=== PATIENT | female | born 1935 | race Caucasian/White ===

== ENCOUNTER → 2016-09-16 | Outpatient (CLI) | payer OTHER ==
[~2016-09-16] MED LIST: ASPCH81 PO; ATOR-22 PO; CALC-338 PO; CHOL100010 PO; HYDR25TA5 PO; ISOS60TA25 PO; MISCCAP80 PO; MULT-506 PO; NTRGSL/4 UT; OMEG12006 PO; POTA10TA PO; PRLSR20 PO; SOTA80TA PO; VITBC PO; WARF2TAB PO; ZNTT/150 PO
--- NOTE | 2016-09-16 16:45 | MAMMOGRAPHY REPORT ---
BILATERAL DIGITAL SCREENING MAMMOGRAM WITH CAD: 09/16/2016 TECHNIQUE: Current study was also evaluated with a Computer Aided Detection (CAD) system. Bilatera l CC and MLO views were obtained. COMPARISON: Comparison is made to exams dated: 06/13/2013 mammogram, 06/11/2012 mammogram, 06/09/2011 mammogram, 06/06/2010 mammogram, 09/05/2015 mammogram, and 06/05/2009 mammogram - [facility]. BREAST COMPOSITION: The tissue of both breasts is heterogeneously dense, which may obscure small ma sses. FINDINGS: There is a nodular 8 mm asymmetry seen within the left lateral breast on the cc view only , which may represent overlapping fibroglandular tissue although spot compression tomosynthesis view s and possible breast ultrasound are recommended for further evaluation. The remainder of both breasts are stable compared to prior exams, without suspicious masses, calcifi cations, or areas of architectural distortion noted. Bilateral benign-appearing calcifications are not significantly changed compared to multiple prior exams. Pacemaker projects over the left pector flex muscle. IMPRESSION: ACR BI-RADS CATEGORY 0: INCOMPLETE EVALUATION: NEED ADDITIONAL IMAGING EVALUATION Left lateral breast asymmetry, for which additional imaging evaluation is recommended. The patient will be called to schedule an appointment. Approximately 10% of breast cancers are not detected with mammography. A negative mammographic repor t should not delay biopsy if a clinically suggestive mass is present. Nicole Carbone M.D. ah/:09/16/2016 15:07:05 Molder Offbearer: Marilee LOVELACE)(Mitchell), [facility] letter sent: Addl Imaging 0 BI-RADS Code: ACR BI-RADS Category 0: Incomplete Evaluation: Need Additional Imaging Evaluation
== END | disposition home or self-care (01) ==
LOC: C.MAMM 14:28
PROVIDERS: ATTEND Family Medicine
DX: Z12.31 Encounter for screening mammogram for malignant neoplasm of breast (principal); N64.89 Other specified disorders of breast

== ENCOUNTER → 2016-09-30 | Outpatient (CLI) | payer OTHER ==
--- NOTE | 2016-10-01 09:24 | MAMMOGRAPHY REPORT ---
UNILATERAL LEFT DIGITAL DIAGNOSTIC MAMMOGRAM TOMOSYNTHESIS AND TARGETED LEFT ULTRASOUND: 09/30/2016 CLINICAL HISTORY: 81-year-old woman called back from screening mammography for an 8 mm asymmetry in the lateral left breast, best seen on the CC view. Family history of breast cancer = 2 sisters. TECHNIQUE: Spot compression left CC and MLO 2-D digital and tomosynthesis images were obtained. COMPARISON: Comparison is made to exams dated: 09/16/2016 mammogram, 09/05/2015 ultrasound, 09/05/2015 m ammogram, and 06/13/2013 mammogram - [facility]. BREAST COMPOSITION: There are scattered areas of fibroglandular density in the left breast. FINDINGS: There is a rounded change metallic biopsy marker in the inferior, far posterior left breas t on the spot compression MLO view. There are grouped punctate and amorphous microcalcifications in the 12:00 to 1:00 middle and anterior left breast, that it been present dating back to at least 200 8, therefore likely benign. The 8 mm nodular asymmetry in the lateral posterior left breast is less conspicuous on the 2-D view, and no definite persistent mass on the corresponding tomosynthesis anai ges. Incidental note is made of a morphologically normal intramammary lymph node in the far posteri or lateral left breast. No focal area of architectural distortion is identified. Real-time high resolution sonographic evaluation was performed in the lateral left breast. In the 2 :00 axis, 2 cm from the nipple, there is a lobulated isoechoic solid-appearing mass versus normal fa t lobule measuring 6.3 x 3.2 x 6.6 mm. This does not correlate with the location of the 8 mm mammog raphic asymmetry but is indeterminate given the solid nature and definitive characterization with ti ssue sampling is recommended. No other discrete solid or cystic mass is identified. IMPRESSION: ACR BI-RADS CATEGORY 4B: INTERMEDIATE SUSPICION FOR MALIGNANCY, TARGETED ULTRASOUND ACR BI-RADS CATEGORY 4B: INTERMEDIATE SUSPICION FOR MALIGNANCY 1. Ultrasound guided core needle biopsy is recommended for an indeterminate solid microlobulated 6. 6 mm mass versus conspicuous fat lobule in the 2:00 left breast, 2 cm from the nipple, incidentally identified on ultrasound. 2. The 8 mm asymmetry in the lateral posterior left breast effaces with additional views and no clare picious sonographic correlate was seen. Pending benign pathology results, a short interval follow-u p left diagnostic mammogram and possible repeat ultrasound is recommended to ensure stability in 6 m onths, as this most likely represents normal overlapping tissue. These results and recommendations were discussed with the patient at the time of the exam. She tent atively scheduled the left breast biopsy prior to leaving our department. Approximately 10% of breast cancers are not detected with mammography. A negative mammographic repor t should not delay biopsy if a clinically suggestive mass is present. Nohemi Sun M.D. ay/:09/30/2016 12:54:08 Colorectal Surgeon: Marlene Temple RT(R)(M), [facility] letter sent: Abnormal 4/5 BI-RADS Code: ACR BI-RADS Category 4B: Intermediate Suspicion For Malignancy Ultrasound BI-RADS: AC R BI-RADS Category 4B: Intermediate Suspicion For Malignancy
== END | disposition home or self-care (01) ==
LOC: C.MAMM 10:30
PROVIDERS: ATTEND Family Medicine
DX: N63 Unspecified lump in breast (principal); N64.89 Other specified disorders of breast

== ENCOUNTER → 2016-10-06 | Outpatient (CLI) | payer OTHER ==
--- NOTE | 2016-10-06 13:20 | Discharge Instructions ---
Discharge Instructions Procedure Procedure Date: Oct 06, 2016. Reason for visit: Left Mass. Discharge Discharge Date: Oct 06, 2016. Discharge Diagnosis: post left breast ultrasound guided core biopsy Medications Restart Stopped Medication(s): Keep taking Warfarin as per your Doctor's orders Instructions Activity Recommendations: Additional Limitations (see below) Return to School/Work: no limitations Recommended Home Diet: No Limitations Provider Instructions: ACTIVITY RECOMMENDATIONS: * No lifting, pushing, pulling or exercising the affected side for three days. RETURN TO SCHOOL/WORK: * You may return to work/school after the procedure, but do not perform any strenuous activities for 24 to 48 hours. MEDICATIONS: * Tylenol (two 325 mg) every four to six hours if needed for mild pain (if not allergic to Tylenol). DIET: * Resume previous diet. SPECIAL CARE INSTRUCTIONS: * Keep biopsy site dry for 24 hours. May shower after 24 hours, but do not soak (bathe) incision. * May remove Tegaderm (plastic patch) tomorrow AFTER showering. * Leave the steri-strips on for one week. Allow the steri-strips to fall off by themselves. If not off after one week, you may remove them. You may place a Bandaid crosswise over the strips, if desired. * Apply ice 10 minutes on and 10 minutes off as needed. * Wear a bra at bedtime to sleep more comfortably for 2-3 days. * Your referring physician should have the results after approximately 5 to 7 business days. * Call for unusual bleeding, fever, drainage, etc or if you have any questions call [phone] during normal business hours or after hours call Dr Sun, . FOLLOW UP VISIT: Follow-up with Referring Physician as scheduled. Allergies Coded Allergies: Sulfa Antibiotics (Verified Allergy, Unknown, UNKNOWN, 02/16/15) HAD RXT IN CHILDHOOD Beata Man Recommendations: Call your doctor if: * Temperature above 101 degrees * Pain not relieved by pain medicine ordered * There is increased drainage or redness from any incision * You have any unanswered questions or concerns. Your Doctors Instructions noted above were prepared by provider Nohemi Sun. Patient Signature Section: Patient Instructions Signature Page Fiorella Cleveland Patient (or Guardian) Signature/Date: I have read and understand the instructions given to me by my caregivers. Caregiver/RN/Doctor Signature/Date: The above-named patient and/or guardian has received patient instructions on this date. + Original Patient Signature Page (only) stays with chart. Please make copy for patient.
--- NOTE | 2016-10-06 13:49 | MAMMOGRAPHY REPORT ---
UNILATERAL LEFT DIGITAL DIAGNOSTIC MAMMOGRAM TOMOSYNTHESIS: 10/06/2016 CLINICAL HISTORY: Status post ultrasound-guided core biopsy in the 2:00 left breast. Please refer to the report from left breast ultrasound guided core biopsy performed at the same time for full detail. IMPRESSION: POST PROCEDURE IMAGING FOR MARKER PLACEMENT Please refer to the report from left breast ultrasound guided core biopsy performed at the same time for full detail. Approximately 10% of breast cancers are not detected with mammography. A negative mammographic repor t should not delay biopsy if a clinically suggestive mass is present. Nohemi Sun M.D. ay/:10/06/2016 13:27:33 Underlay Stitcher: Sabrina LOVELACE)(Mitchell), [facility] BI-RADS Code: Post Procedure Imaging For Marker Placement
--- NOTE | 2016-10-07 08:01 | MAMMOGRAPHY REPORT ---
THIS REPORT HAS BEEN AMENDED. ULTRASOUND GUIDED BIOPSY LEFT BREAST: 10/06/2016 CLINICAL HISTORY: Indeterminate hypoechoic solid mass in the 2:00 left breast. Patient presents for ultrasound-guided core needle biopsy. COMPARISON: Comparison is made to exams dated: 09/30/2016 ultrasound, 09/30/2016 mammogram, and 2016 mammogram - [facility]. PATIENT CONSENT: The procedure, risks and benefits were discussed with the patient and informed writ ten consent was obtained. Specific risks to this procedure include: bleeding, infection, puncture of adjacent structure, nontarget biopsy, sampling error, metal allergy and medication reaction. PROCEDURE DESCRIPTION: A time out was performed and the left breast was agreed as the site of biopsy . The skin was prepped and draped in the usual sterile fashion. The slightly hypoechoic irregular so lid appearing mass in the left 2:00 breast was chosen as the target for biopsy. Subcutaneous and int raparenchymal 1% buffered lidocaine was administered as local anesthesia. A skin incision was made. Through the incision, 3 samples were taken with a 14 gauge Achieve biopsy device. A metallic marker was placed at the biopsy site. Hemostasis was achieved after manual compression. The patient tolera awilda the procedure well and there was no immediate complication. She left the department in satisfac tory condition and was instructed to continue taking Coumadin as per her doctor's recommendations. The samples were sent to the pathology department in an appropriately labeled container. Postprocedure left CC and ML tomosynthesis images were obtained. There is a new ribbon-shaped metal lic biopsy marker and no significant hematoma in the upper outer anterior left breast, at the site o f the biopsied hypoechoic solid mass seen on ultrasound. The biopsy marker clip is more anterior to the effacing asymmetry seen on the recent screening mammogram performed 09/16/2016, as this was tho ught to be incidental based on location during the diagnostic ultrasound. Therefore, pending benign pathology results, would recommend repeat diagnostic mammograms of the left breast in 6 months to e nsure stability. IMPRESSION: ULTRASOUND GUIDED BIOPSY Status post ultrasound guided core needle biopsy of an indeterminate solid mass in the 2:00 left anthony ast, with biopsy marker placed at the site. Pending benign pathology results, follow-up diagnostic mammograms and possible ultrasound of the lef t breast are recommended to ensure stability in 6 months. The patient will receive notification of the biopsy results from her referring physician. Nohemi Sun M.D. ay/:10/06/2016 16:00:52 Garment Form Assembler: Sabrina DAVIDSON (R)), [facility] AMENDMENT: 10/15/2016 Nohemi Sun M.D. 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 Negative for in situ and invasiv e carcinoma. The pathology results are concordant with the imaging appearance. Given that the monico ent was initially called back for an asymmetry posterior and lateral to the biopsied mass, those marni or recommendations still stand of a short interval follow-up diagnostic left mammogram in 6 months t o ensure stability.
== END | disposition home or self-care (01) ==
LOC: C.MAMM 12:27
PROVIDERS: ATTEND Family Medicine
DX: D24.2 Benign neoplasm of left breast (principal); N60.92 Unspecified benign mammary dysplasia of left breast; R92.8 Other abnormal and inconclusive findings on diagnostic imaging of breast

== ENCOUNTER → 2017-05-08 | Outpatient (CLI) | payer OTHER ==
--- NOTE | 2017-05-08 15:48 | MAMMOGRAPHY REPORT ---
UNILATERAL LEFT DIGITAL DIAGNOSTIC MAMMOGRAM TOMOSYNTHESIS WITH CAD: 05/08/2017 CLINICAL HISTORY: Six-month follow-up of left breast asymmetry. History of benign ultrasound-guided biopsy of a left 2:00 breast mass October 2016. TECHNIQUE: Breast tomosynthesis in addition to standard 2D mammography was performed. Current study was also evaluated with a Computer Aided Detection (CAD) system. Left CC and MLO 2-D and tomosynthes is images were obtained. COMPARISON: Comparison is made to exams dated: 10/06/2016 mammogram, 09/30/2016 ultrasound, 09/30/2016 m ammogram, 09/16/2016 mammogram, 09/05/2015 mammogram, and 06/13/2013 mammogram - [facility]. BREAST COMPOSITION: The tissue of the left breast is heterogeneously dense, which may obscure small masses. FINDINGS: The previously described asymmetry seen within the left lateral posterior breast is no long er evident. The tissue in this region has the appearance of normal fibroglandular tissue on the tushar synthesis images. Given that the asymmetry is no longer evident, it is benign and compatible with no rmal fibroglandular tissue. There are no suspicious masses, calcifications, or areas of architectura l distortion noted in the left breast. There has been no significant interval change compared to marni or exams. A biopsy marker clip is again noted in the left upper outer quadrant from prior benign ult rasound guided biopsy. Scattered benign-appearing calcifications are not significantly changed, incl uding loosely grouped calcifications in the left upper outer quadrant which are stable dating back to at least the 2007 exam. IMPRESSION: ACR BI-RADS CATEGORY 2: BENIGN The left breast asymmetry is no longer evident, and is benign and compatible with normal fibroglandul ar tissue. There is no mammographic evidence of malignancy. Return to annual mammogram screening [facility] is recommended, due September 2017. The patient has been verbally notified of the results. Approximately 10% of breast cancers are not detected with mammography. A negative mammographic report should not delay biopsy if a clinically suggestive mass is present. Nicole Carbone M.D. ah/:05/08/2017 10:42:59 Internet Systems Administrator: Daphne TALAMANTES(Heriberto)(M), [facility] letter sent: Normal 1/2 BI-RADS Code: ACR BI-RADS Category 2: Benign
== END | disposition home or self-care (01) ==
LOC: C.MAMM 10:22
PROVIDERS: ATTEND Family Medicine
DX: N64.89 Other specified disorders of breast (principal)

== ENCOUNTER 2017-12-25 22:54 | Emergency (ER) | payer OTHER ==
[~2017-12-25] VITALS: Ht 157.5 cm; Wt 81.9 kg
[2017-12-25 22:54] VITALS: TEMP 37.1; Ht 157.5 cm; Wt 81.9 kg
[~2017-12-25 22:54] MED LIST changes: +RANI150T85 PO; -ZNTT/150 PO
[2017-12-25] MEDS ORDERED: SODIUM CHLORIDE 0.9% 1000ML 1,000 ML IV ONE (23:10)
[2017-12-25 23:22] LABS: BASO % 0.6 %; BASO ABS # 0.04 K/uL (0-0.2); EOS % 1.6 %; EOS ABS # 0.11 K/uL (0-0.5); HEMATOCRIT 34.9 % (37-47); IG# 0.01 K/uL (0.00-0.02); LYMPH % 23.8 %; LYMPH ABS # 1.67 K/uL (1.2-3.4); MEAN CELL VOLUME 80.4 fL (80-100); MEAN CORPUSCULAR HEMOGLOBIN 25.3 pg (25-34); MEAN CORPUSCULAR HGB CONC 31.5 g/dl (32-36); MONO % 8.8 %; MONO ABS # 0.62 K/uL (0.11-0.59); NEUT % 65.1 %; NEUT ABS # 4.56 K/uL (1.4-6.5); PLATELET COUNT 215 K/uL (130-400); RED CELL DISTRIBUTION WIDTH CV 15.5 % (11.5-14.5); RED CELL DISTRIBUTION WIDTH SD 45.6 fL (36.4-46.3); WHITE BLOOD COUNT 7.01 K/uL (4.8-10.8)
--- NOTE | 2017-12-25 23:29 | EMERGENCY ROOM VISIT NOTE ---
History Report prepared by Varsha: Oleg Faria Under the Supervision of: Dr. Aster Milner M.D. 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 The patient reports falling in her bathroom. She notes that she tried to grab her towel rack, though missed it and fell onto the tub with her left proximal arm and then landed on her left hip. She notes the pain is worsened with standing. She denies any head injuries or LOC. She is on Coumadin due to a history of atrial fibrillation. She has a pacemaker. She denies any previous hip surgeries. She currently rates her pain a 5/10 in severity. Source of History: patient Onset: TECHNOLOGY AUDITOR Position: other (left hip) Symptom Intensity: 5/10 Timing: other (persistent) Associated Symptoms: No LOC Note: Denies any head injuries. Notes left shoulder pain. Review of Systems See HPI for pertinent positives & negatives. A total of 10 systems reviewed and were otherwise negative. Past Medical & Surgical Medical Problems: (1) Coronary artery disease (2) Diverticulitis (3) HYPERTENSION NOS Family History FH: cancer Social History Smoking Status: Never Smoker Alcohol Use: none Drug Use: none Marital Status: Housing Status: lives with family Occupation Status: retired Current/Historical Medications Scheduled Aspirin (Aspirin Tab-Chewable *), 81 MG PO QPM Atorvastatin (Lipitor), 20 MG PO DAILY Calcium Citrate-Vitamin D (Citracal/Vitamin D), 1 TAB PO AMPM Cholecalciferol (Vitamin D), 1,000 INTER.UNIT PO BID Hydrochlorothiazide (Hydrochlorothiazide), 25 MG PO MWF Isosorbide Mononitrate Ext Rel (Imdur Ext Rel), 90 MG PO QAM Multivitamin (Multivitamin), 1 TAB PO 4XWK [place]-3 Fatty Acids ([place] 3), 1,000 MG PO AMPM Omeprazole (Prilosec), 20 MG PO DAILYBD Potassium Chloride (K-Tabs), 10 MEQ PO MWF Sotalol Hcl (Sotalol Hcl), 160 MG PO BID Vitamin B Complex (Vitamin B Complex), 1 TAB PO DAILY Warfarin Sodium (Coumadin), 2 MG PO 6XWK Warfarin Sodium (Coumadin), 1 MG PO WK Scheduled PRN Nitroglycerin (Nitrostat), 0.4 MG UT UD PRN for Chest Pain Probiotic Product (Probiotic), 1 CAP PO DAILY PRN for ABDOMINAL PAIN Ranitidine (Zantac), 1 TAB PO PRN PRN for HEARTBURN Tramadol (Ultram), 1 TABS PO Q6 PRN for Pain Allergies Coded Allergies: Sulfa Antibiotics (Verified Allergy, Unknown, UNKNOWN, 02/16/15) HAD RXT IN CHILDHOOD Physical Exam Vital Signs Date Time Temp Pulse Resp B/P (MAP) Pulse Ox O2 Delivery O2 Flow Rate FiO2 12/26/17 02:08 62 18 140/80 96 12/26/17 00:36 64 18 144/87 96 Room Air 12/25/17 23:10 62 12/25/17 22:54 37.1 78 18 151/83 94 Room Air Physical Exam Vital signs reviewed. General: Well-appearing, in no significant distress. HEENT: No scleral icterus, PERRLA, neck supple. Atraumatic. Cardiovascular: Regular rate and rhythm, no extra sounds. Pulmonary: Clear to auscultation bilaterally, normal work of breathing. Abdomen: Soft, nontender, nondistended, positive bowel sounds. Musculoskeletal: Atraumatic, no significant deformity. Cervical, thoracic and lumbar spine are palpated, nontender, no step-off or deformity appreciated. Pelvis: no pain with ROM to the left hip, no pain with palpation of left hip/ pelvis, some discomfort of left trochanter. Pain to left hip with sitting up. Some ecchymosis to ventral forearm and FROM of left forearm. Neurologic: Patient awake alert and oriented x 3, full strength in all 4 extremities. Skin: Warm, dry, no rash. No significant abrasions/laceration. Medical Decision & Procedures ER Provider Diagnostic Interpretation: Radiology results as stated below per my review and radiologist interpretation: CT HEAD: No ICH, mass effect or edema. No skull fracture. Radiologist: Yaw Montero MD Study ready at 00:03 and initial results transmitted at 00:26 Radiology results as stated below per my review and interpretation: Chest XR: Pacemaker in place. Some right perihylar density. Question of lymphadenopathy, no focal lung consolidation. No failure. No significant change compared to 2014. Hip/Pelvis XR: No acute fracture appreciated of the pelvis or left hip. Moderate fecal retention. Laboratory Results 12/25/17 23:05 Red Blood Count 4.34, Mean Corpuscular Volume 80.4, Mean Corpuscular Hemoglobin 25.3, Mean Corpuscular Hemoglobin Concent 31.5, Mean Platelet Volume 10.0, Neutrophils (%) (Auto) 65.1, Lymphocytes (%) (Auto) 23.8, Monocytes (%) (Auto) 8.8, Eosinophils (%) (Auto) 1.6, Basophils (%) (Auto) 0.6, Neutrophils # (Auto) 4.56, Lymphocytes # (Auto) 1.67, Monocytes # (Auto) 0.62, Eosinophils # (Auto) 0.11, Basophils # (Auto) 0.04 12/25/17 23:05 Test 12/25/17 23:05 White Blood Count 7.01 K/uL (4.8-10.8) Red Blood Count 4.34 M/uL (4.2-5.4) Hemoglobin 11.0 g/dL (12.0-16.0) Hematocrit 34.9 % (37-47) Mean Corpuscular Volume 80.4 fL (80-100) Mean Corpuscular Hemoglobin 25.3 pg (25-34) Mean Corpuscular Hemoglobin Concent 31.5 g/dl (32-36) Platelet Count 215 K/uL (130-400) Mean Platelet Volume 10.0 fL (7.4-10.4) Neutrophils (%) (Auto) 65.1 % Lymphocytes (%) (Auto) 23.8 % Monocytes (%) (Auto) 8.8 % Eosinophils (%) (Auto) 1.6 % Basophils (%) (Auto) 0.6 % Neutrophils # (Auto) 4.56 K/uL (1.4-6.5) Lymphocytes # (Auto) 1.67 K/uL (1.2-3.4) Monocytes # (Auto) 0.62 K/uL (0.11-0.59) Eosinophils # (Auto) 0.11 K/uL (0-0.5) Basophils # (Auto) 0.04 K/uL (0-0.2) RDW Standard Deviation 45.6 fL (36.4-46.3) RDW Coefficient of Variation 15.5 % (11.5-14.5) Immature Granulocyte % (Auto) 0.1 % Immature Granulocyte # (Auto) 0.01 K/uL (0.00-0.02) Prothrombin Time 30.4 SECONDS (9.0-12.0) Prothromb Time International Ratio 3.0 (0.9-1.1) Activated Partial Thromboplast Time 33.9 SECONDS (21.0-31.0) Partial Thromboplastin Ratio 1.3 Anion Gap 5.0 mmol/L (3-11) Est Creatinine Clear Calc Drug Dose 49.7 ml/min Estimated GFR () 71.4 Estimated GFR (Non- 61.6 BUN/Creatinine Ratio 28.5 (10-20) Calcium Level 8.6 mg/dl (8.5-10.1) Laboratory results per my review. Medications Administered Medications (Trade) Dose Ordered Sig/Luigi Route Start Time Stop Time Status Last Admin Dose Admin Sodium Chloride 1,000 ml @ 150 mls/hr Q6H40M ONCE IV 12/25/17 23:10 12/26/17 02:55 DC 12/25/17 23:34 150 MLS/HR Acetaminophen (Tylenol Tab) 650 mg NOW STAT PO 12/25/17 23:56 12/25/17 23:57 DC 12/26/17 00:06 650 MG Fentanyl Citrate (Fentanyl Inj) 25 mcg NOW STAT IV 12/25/17 23:56 12/25/17 23:57 DC 12/26/17 00:05 25 MCG Tramadol HCl (Ultram Home Pack) 1 homepack UD ONCE PO 12/26/17 01:45 12/26/17 01:46 DC 12/26/17 01:58 1 HOMEPACK ECG Per My Interpretation Indication: other (trauma) Rate (beats per minute): 61 Rhythm: other (Atrial paced rhythm ) Findings: nonspecific-ST abn, no acute ischemic change, no ectopy, other ( Repolarization abnormality in anterior leads.) ED Course 2315: Past medical records reviewed. The patient was evaluated in room A11B. A complete history and physical examination was performed. 2310: Ordered Sodium Chloride 1,000 ml @ 150 mls/hr IV 2356: Ordered Fentanyl 25 mcg IV and Tylenol 650 mg PO 0117: I reassessed the patient at this time. I discussed the results and treatment plan with the patient. I answered all pertaining questions that she had. She expressed understanding and verbalized agreement. The patient will be discharged home. 0145: Ordered Tramadol HCl 1 homepack PO Medical Decision Differential diagnosis: Etiologies such as fracture, dislocation, neurovascular compromise, compartment syndrome, soft tissue injury, as well as others were entertained. This patient was evaluated and appeared to be in no significant distress. Patient has some tenderness to palpation of the left greater trochanter. X- rays were obtained and reveal no evidence of acute fracture to my interpretation. CT scan of the head was performed and reveals no evidence of acute intracranial abnormality. There is no evidence of acute fracture or dislocation on exam of the left shoulder. The patient was hydrated with normal saline solution. She was given p.o. Tylenol and IV fentanyl. Patient was able to bear weight and ambulate with only mild discomfort. I suspect she has contused both the left proximal arm and hip. Patient's laboratory work reveals an INR of 3.0. Patient was comfortable with the plan for discharge. She does have a walker at home. She will follow with her PCP this week for reevaluation and return to the ED for worsening of symptoms or any medical concerns. Medication Reconcilliation Current Medication List: was personally reviewed by me Blood Pressure Screening Patient's blood pressure: Elevated blood pressure Blood pressure disposition: Elevated BP felt to be situational, Referred to PCP Impression Primary Impression: Contusion of left hip Additional Impression: Contusion of left arm Scribe Attestation The scribe's documentation has been prepared under my direction and personally reviewed by me in its entirety. I confirm that the note above accurately reflects all work, treatment, procedures, and medical decision making performed by me. Departure Information Dispostion Home / Self-Care Prescriptions Tramadol (Ultram) 50 Mg Tab 1 TABS PO Q6 Y for Pain, #20 TAB Prov: Aster Milner M.D. 12/26/17 Referrals Diana Allen DO (PCP) Forms HOME CARE DOCUMENTATION FORM, IMPORTANT VISIT INFORMATION, WORK / SCHOOL INSTRUCTIONS Patient Instructions My [facility] Additional Instructions Diagnosis: Left hip and arm contusion Tylenol 650 mg every 6 hours as needed for pain. Ultram 50 mg every 6 hours as needed for more severe pain. Use a walker at all times when ambulating until symptoms resolve. Please follow-up with your primary care physician as soon as possible for reevaluation. Return to the ED for worsening of symptoms or any medical concerns. Problem Qualifiers
[2017-12-25 23:36] LABS: PTT PATIENT 33.9 SECONDS (21.0-31.0)
[2017-12-25 23:49] LABS: CALCIUM 8.6 mg/dl (8.5-10.1); CREATININE 0.88 mg/dl (0.60-1.20); POTASSIUM 3.9 mmol/L (3.5-5.1)
[2017-12-25] MEDS ORDERED: ACETAMINOPHEN 325 MG TAB PO STA (23:56)
[2017-12-25] MEDS ORDERED: FENTANYL CITRATE INJ 50 MCG/1 ML 2 ML VIAL IV STA (23:56)
[2017-12-26] MEDS ORDERED: TRAM-10 PO (01:37)
[2017-12-26] MEDS ORDERED: TRAMADOL HCL 50 MG HOME PACK PO ONE (01:45)
[2017-12-26 02:08] VITALS: BP 140/80; PULSE 62; O2SAT 96
--- NOTE | 2017-12-26 06:31 | DIAGNOSTIC IMAGING REPORT ---
HEAD CT NONCONTRAST CT DOSE: 614.27 mGy.cm HISTORY: fall, coumadin TECHNIQUE: Multiaxial CT images of the head were performed without the use of intravenous contrast. Automated exposure control was utilized for this study. A dose lowering technique was utilized adhering to the principles of ALARA. Comparison: None. Findings: The paranasal sinuses and mastoid air cells are clear. The calvarium and skull base are intact. There is no mass, hematoma, midline shift, acute infarct. White matter hypodensity is nonspecific but suggestive of microvascular ischemic change. The ventricles and sulci demonstrate mild age-related involutional changes. Impression: No acute intracranial abnormality. Electronically signed by: Mingo Ferreira M.D. 12/26/2017 6:30 AM Dictated Date/Time: 12/26/2017 6:29 AM
--- NOTE | 2017-12-26 07:54 | DIAGNOSTIC IMAGING REPORT ---
L PELVIS/UNILATERAL HIP 2-3VIEWS CLINICAL HISTORY: L hip pain after fall COMPARISON STUDY: None. FINDINGS: No fracture or dislocation within the pelvis or hips. Mild cartilage space narrowing within the bilateral hips. The sacrum is intact. Soft tissues are unremarkable. IMPRESSION: No fracture or dislocation within the pelvis or hips. Electronically signed by: Mingo Ferreira M.D. 12/26/2017 7:53 AM Dictated Date/Time: 12/26/2017 7:52 AM
--- NOTE | 2017-12-26 07:56 | DIAGNOSTIC IMAGING REPORT ---
CHEST ONE VIEW PORTABLE HISTORY: fall, hip pain COMPARISON: Chest 12/10/2014. FINDINGS: No pneumothorax. No pleural effusions. Large hiatus hernia. The heart remains mildly enlarged. Left basilar linear densities favor subsegmental atelectasis. Mild interstitial thickening persists. Left-sided dual-chamber pacemaker. Stable hazy appearance the left midlung zone. This may represent scarring. IMPRESSION: No significant change compared to the prior study. No acute process. Electronically signed by: Mingo Ferreira M.D. 12/26/2017 7:55 AM Dictated Date/Time: 12/26/2017 7:54 AM
== END 2017-12-26 02:08 | disposition home or self-care (01) ==
LOC: C.EDA 22:54
DX: S70.02XA Contusion of left hip, initial encounter (principal); S40.022A Contusion of left upper arm, initial encounter; W01.10XA Fall on same level from slipping, tripping and stumbling with subsequent striking against unspecified object, initial encounter; Y92.002 Bathroom of unspecified non-institutional (private) residence as the place of occurrence of the external cause; I48.91 Unspecified atrial fibrillation; I10 Essential (primary) hypertension; Z95.0 Presence of cardiac pacemaker; Z79.82 Long term (current) use of aspirin; Z79.01 Long term (current) use of anticoagulants; Z79.899 Other long term (current) drug therapy; Z88.2 Allergy status to sulfonamides